=== PATIENT | female | born 1990 | race Two or more races ===

== ENCOUNTER 2016-09-27 08:31 | Emergency (ER) | payer BC ==
[~2016-09-27] VITALS: Ht 154.9 cm; Wt 68.0 kg
[2016-09-27 09:02] VITALS: BP 120/60
[2016-09-27] MEDS ORDERED: DIPH25CA58 PO (09:46)
[2016-09-27] MEDS ORDERED: PRED20TA PO (09:46)
[2016-09-27] MEDS ORDERED: predniSONE 20 MG TABLET PO ONE (10:00)
[2016-09-27] MEDS ORDERED: diphenhydrAMINE HCL 25 MG CAPSULE PO ONE (10:00)
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
== END 2016-09-27 09:55 | disposition home or self-care (01) ==
LOC: ER 08:31
DX: R21 Rash and other nonspecific skin eruption (principal)
CPT/HCPCS: 99283; J7512; Q0163

== ENCOUNTER 2017-11-07 15:19 | Emergency (ER) | payer BC ==
[2017-11-07 16:35] LABS: URINE HCG POC HCG NEGATIVE (Negative)
[2017-11-07 16:35] LABS: BILIRUBIN,URINE NEGATIVE (NEG); CLARITY,URINE CLEAR; COLOR,URINE YELLOW; GLUCOSE,URINE NEGATIVE (NEG); NITRITE,URINE NEGATIVE (NEG); PH,URINE 6.5; PROTEIN,URINE NEGATIVE (NEG-TRACE); UROBILINOGEN,URINE 0.2 mg/dL (0.2 mg/dL)
[2017-11-07 16:52] LABS: BACTERIA,URINE MODERATE /HPF (0-FEW); RBC,URINE RARE /HPF (0-2); SQUAMOUS EPITHELIAL CELL,UR MANY /LPF
[2017-11-10 20:10] LABS: CHLAMYDIA PROBE Negative (Negative); GC PROBE Negative (Negative)
[2017-11-11 15:48] LABS: HERPES SIMPLEX TYPE 1 Negative (Negative); HERPES SIMPLEX TYPE 2 Negative (Negative)
== END 2017-11-07 18:25 | disposition home or self-care (01) ==
LOC: ER 18:25
DX: B00.1 Herpesviral vesicular dermatitis (principal); N76.0 Acute vaginitis (principal); B96.89 Other specified bacterial agents as the cause of diseases classified elsewhere
CPT/HCPCS: 81001; 81025; 87086; 87491; 87529; 87591; 99284; Q0111